=== PATIENT | female | born 1985 | race Caucasian/White ===

== ENCOUNTER 2016-08-18 19:36 | Emergency (ER) | payer MEDICAID ==
[~2016-08-18] VITALS: Ht 157.5 cm; Wt 89.5 kg
[~2016-08-18 19:36] MED LIST: DESYREL 100MG100 MG PO; DESYREL 50MG50 MG PO; PERCOCET 325 MG1 TA2 PO; PHENERGAN 25 TA25 MG PO; PRILOSEC 20MG20 MG PO; PROVERA 10MG10 MG PO; ULTRAM 50MG TAB50 MG PO; UNK BIRTH CONTROL; VALIUM 5MG T5 MG/TAB PO; ZANTAC 150MG T150 MG PO
[2016-08-18 19:38] VITALS: BP 121/75; PULSE 90; TEMP 98.9
[2016-08-18 20:11] LABS: PH 5 (5-8); SQUAMOUS EPITHELIAL 0-2 /hpf; URINE APPEARANCE Clear; URINE BACTERIA Rare /hpf; URINE BILIRUBIN Negative (NEGATIVE); URINE BLOOD 2+ (NEGATIVE); URINE COLOR Yellow; URINE GLUCOSE Negative (NEGATIVE); URINE KETONE Negative (NEGATIVE); URINE RBC >50 /hpf; URINE UROBILINOGEN Negative (NEGATIVE); URINE WBC >50 /hpf
[2016-08-18] MEDS ORDERED: PYRIDIUM 100MG100 MG PO (20:38)
[2016-08-18] MEDS ORDERED: MACROBID 1100 MG/CAP PO (20:38)
== END 2016-08-18 20:43 | disposition home or self-care (01) ==
LOC: COL.ER 19:36
PROVIDERS: Nurse Practitioner
DX: N39.0 Urinary tract infection, site not specified (principal); F31.9 Bipolar disorder, unspecified; F17.210 Nicotine dependence, cigarettes, uncomplicated

== ENCOUNTER 2016-12-15 12:28 | Emergency (ER) | payer MEDICAID ==
[~2016-12-15] VITALS: Ht 157.5 cm; Wt 94.7 kg
[~2016-12-15 12:28] MED LIST changes: +MACROBID 1100 MG/CAP PO; +PYRIDIUM 100MG100 MG PO
[2016-12-15 12:35] VITALS: BP 130/72; PULSE 74; TEMP 99.5
== END 2016-12-15 14:34 | disposition home or self-care (01) ==
LOC: COL.ER 12:28
DX: J02.9 Acute pharyngitis, unspecified (principal); F17.210 Nicotine dependence, cigarettes, uncomplicated
CPT/HCPCS: J8540

== ENCOUNTER 2018-10-25 18:56 | Emergency (ER) | payer SELFPAY ==
[~2018-10-25] VITALS: Ht 157.5 cm; Wt 106.8 kg
[2018-10-25 19:00] VITALS: BP 124/74
[2018-10-25] MEDS ORDERED: INDERAL 20MG20 MG PO (19:06)
[2018-10-25 20:34] VITALS: PULSE 65; TEMP 98
== END 2018-10-25 20:34 | disposition home or self-care (01) ==
LOC: COL.ER 18:56
DX: S61.230A Puncture wound without foreign body of right index finger without damage to nail, initial encounter (principal); I10 Essential (primary) hypertension; F31.9 Bipolar disorder, unspecified; F41.9 Anxiety disorder, unspecified; F17.210 Nicotine dependence, cigarettes, uncomplicated; Z88.0 Allergy status to penicillin; Z88.5 Allergy status to narcotic agent; W29.8XXA Contact with other powered hand tools and household machinery, initial encounter; Y92.59 Other trade areas as the place of occurrence of the external cause

== ENCOUNTER 2023-11-24 10:50 | Emergency (ER) | payer MEDICAID ==
[~2023-11-24] VITALS: Ht 157.5 cm; Wt 126.9 kg
[~2023-11-24 10:50] MED LIST changes: +INDERAL 20MG20 MG PO
[2023-11-24 10:54] VITALS: BP 114/72; TEMP 98.4
[2023-11-24] MEDS ORDERED: PREDNISONE20 MG PO (13:05)
[2023-11-24] MEDS ORDERED: PROAIR HFA0.09 MG/AC IH (13:05)
[2023-11-24 13:28] VITALS: PULSE 86
== END 2023-11-24 13:24 | disposition home or self-care (01) ==
LOC: COL.ER 10:50
DX: R06.02 Shortness of breath (principal)